=== PATIENT | male | born 1955 | race Caucasian/White ===

== ENCOUNTER 2016-10-11 18:53 | Emergency (ER) | payer OTHER ==
[2016-10-11] MEDS ORDERED: ASPIRIN 81 MG TABLET, CHEWABLE PO ONE (19:29)
--- NOTE | 2016-10-11 19:33 | ER Document Report ---
ED Medical Screen (RME) - General Stated Complaint: BLOOD PRESSURE ISSUE Notes: Patient states he has been feeling dizzy and having nausea since last . Had an EKG done in the ambulance on , was seen in the [facility] ER. States had a negative CT scan of head for headache. Still has OSORIO today. No blood work done. Denies fever, cough or congestion. States blood pressure has been elevated since . I have greeted and performed a rapid initial assessment of this patient. A comprehensive ED assessment and evaluation of the patient, analysis of test results and completion of the medical decision making process will be conducted by additional ED providers. TRAVEL OUTSIDE OF THE [place] IN LAST 30 DAYS: No - Related Data Allergies/Adverse Reactions: No Known Allergies Allergy (Unverified 06/25/14 07:38) Past Medical History - Past Medical History Cardiac Medical History: Reports: Hx Hypertension Endocrine Medical History: Reports: Hx Diabetes Mellitus Type 2 - Immunizations Hx Diphtheria, Pertussis, Tetanus Vaccination: - unk Physical Exam - Vital signs Vitals: Temp Pulse Resp BP Pulse Ox 97.9 F 93 12 184/102 H 98 10/11/16 19:19 10/11/16 19:19 10/11/16 19:19 10/11/16 19:19 10/11/16 19:19 - Respiratory Respiratory status: No respiratory distress Breath sounds: Normal - Cardiovascular Rhythm: Regular Heart sounds: Normal auscultation Course - Vital Signs Vital signs: Temp Pulse Resp BP Pulse Ox 97.9 F 93 12 184/102 H 98 10/11/16 19:19 10/11/16 19:19 10/11/16 19:19 10/11/16 19:19 10/11/16 19:19
[2016-10-11] MEDS ORDERED: CLONIDINE HCL 0.1 MG TABLET PO ONE (20:36)
[2016-10-11 20:42] LABS: ABSOLUTE EOSINOPHILS # (AUTO) 0.3 10^3/uL (0.0-0.6); ABSOLUTE LYMPHOCYTES (AUTO) 2.6 10^3/uL (0.5-4.7); ABSOLUTE MONOCYTES (AUTO) 0.9 10^3/uL (0.1-1.4); ABSOLUTE NEUT (AUTO) 6.1 10^3/uL (1.7-8.2); BASOPHILS % (AUTO) 0.3 % (0-2); HEMATOCRIT 47.2 % (37.9-51.0); HEMOGLOBIN 16.2 g/dL (13.5-17.0); HGB HCT DIFFERENCE 1.4; LYMPHOCYTES % (AUTO) 26.3 % (13-45); MEAN CORPUSCULAR HEMOGLOBIN 31.3 pg (27.0-33.4); MEAN CORPUSCULAR HGB CONC 34.3 g/dL (32.0-36.0); MEAN CORPUSCULAR VOLUME 91 fl (80-97); MONOCYTES % (AUTO) 8.6 % (3-13); RED BLOOD COUNT 5.18 10^6/uL (4.35-5.55); SEGMENTED NEUTROPHILS % (AUTO) 61.8 % (42-78); WHITE BLOOD COUNT 9.9 10^3/uL (4.0-10.5)
--- NOTE | 2016-10-11 20:42 | ER Document Report ---
ED General - General Chief Complaint: High Blood Pressure Stated Complaint: BLOOD PRESSURE ISSUE Information source: Patient Notes: 61-year-old male who presents today with the onset of a headache. Patient states that he went to his primary care physician to have an injection of his foot for plantar fasciitis. He received the injection. He states at the office his systolic blood pressure was 190. Patient was not started on new medications but discharged home. He states he felt a little lightheaded and dizzy that they with a frontal headache and went to the fire department who took him to the [facility] emergency department. Supposedly they gave the patient blood pressure medications with "dropped his blood pressure in the ER". The discharge the patient home after observation in the emergency department with no change in medications. Patient states he has continued to have some intermittent frontal headaches without blurry vision, neck pain, nausea, vomiting, chest pain, weakness or numbness. He believes he may have had some bilateral hand swelling yesterday which has resolved. No lower extremity pain or swelling. Patient has been taking valsartan 60 mg daily for greater than 5 years. He states his headaches have been intermittent with no aggravating or relieving factors. The headache came on slowly on onset. TRAVEL OUTSIDE OF THE [place] IN LAST 30 DAYS: No - HPI Onset: Other - See above Onset/Duration: Gradual Quality of pain: Achy Severity: Moderate Pain Level: 2 Associated symptoms: Other - See above Exacerbated by: Denies Relieved by: Denies Similar symptoms previously: Yes Recently seen / treated by doctor: Yes - Related Data Allergies/Adverse Reactions: No Known Allergies Allergy (Verified 10/11/16 19:32) Past Medical History - Social History Smoking Status: Current Every Day Smoker Chew tobacco use (# tins/day): No Frequency of alcohol use: None Drug Abuse: None Family History: Reviewed & Not Pertinent Patient has suicidal ideation: No Patient has homicidal ideation: No - Past Medical History Cardiac Medical History: Reports: Hx Hypertension Endocrine Medical History: Reports: Hx Diabetes Mellitus Type 2 Renal/ Medical History: Denies: Hx Peritoneal Dialysis - Immunizations Hx Diphtheria, Pertussis, Tetanus Vaccination: - unk Review of Systems - Review of Systems Constitutional: denies: Fever EENT: denies: Eye discharge, Blurred vision, Nose discharge Cardiovascular: denies: Chest pain, Palpitations Respiratory: denies: Cough, Short of breath Gastrointestinal: denies: Vomiting Genitourinary: denies: Dysuria Musculoskeletal: denies: Leg swelling Skin: Other - no hives. denies: Rash Neurological/Psychological: Other - no slurred speech -: Yes All other systems reviewed and negative Physical Exam - Vital signs Vitals: Temp Pulse Resp BP Pulse Ox 97.9 F 93 12 184/102 H 98 10/11/16 19:19 10/11/16 19:19 10/11/16 19:19 10/11/16 19:19 10/11/16 19:19 Notes: Reviewed vital signs and nursing note as charted by RN. CONSTITUTIONAL: Alert and oriented and responds appropriately to questions. Well -appearing; well-nourished HEAD: Normocephalic; atraumatic EYES: PERRL; full extraocular range of motion. ENT: Normal nose; no rhinorrhea; moist mucous membranes; pharynx without lesions noted NECK: Supple without meningismus; non-tender; no carotid bruits; no cervical lymphadenopathy, no masses CARD: Regular rate and rhythm; no murmurs, no clicks, no rubs, no gallops; symmetric distal pulses RESP: Normal chest excursion without splinting or tachypnea; breath sounds clear and equal bilaterally; no wheezes, no rhonchi, no rales ABD/GI: Normal bowel sounds; non-distended; soft, non-tender, no rebound, no guarding; no palpable organomegaly or masses BACK: The back appears normal and is non-tender to palpation, there is no CVA tenderness EXT: Normal ROM in all joints; non-tender to palpation; no cyanosis, no effusions, no edema SKIN: Normal color for age and race; warm; dry; good turgor; capillary refill < 2 seconds; no acute lesions noted NEURO: CN II through XII are intact. Patient has 5 out of 5 bilateral upper and lower extremity strength with sensation intact to light touch. PSYCH: The patient's mood and manner are appropriate. Grooming and personal hygiene are appropriate. Course - Re-evaluation Re-evalutation: 10/11/16 20:41 Given the history and physical examination I will perform a CT scan of the head as well as an EKG and basic laboratory values. I will provide antihypertensive medications with the patient on the monitor given his recent visit to the [facility] emergency department as detailed above. EKG shows a heart of 77, normal sinus rhythm, normal axis, no obvious ST elevation or depression. 10/11/16 21:50 Labs, troponin, CT scan of the head, an x-ray of the chest as recorded showing no acute abnormalities. Patient's headache is improved. EKG unremarkable. 10/11/16 22:41 Blood pressure has improved. Patient states he feels "absolutely great" and denies any headache, weakness or numbness. I will start the patient on clonidine 0.1 twice a day. Patient states that he has an appointment with his primary care physician tomorrow morning. I have told him not to fill the prescription until he sees his primary care physician tomorrow morning. Strict return precautions have been explained. - Vital Signs Vital signs: Temp Pulse Resp BP Pulse Ox 97.9 F 94 10 L 152/92 H 98 10/11/16 19:28 10/11/16 19:28 10/11/16 20:37 10/11/16 20:37 10/11/16 20:37 - Laboratory Result Diagrams: 10/11/16 20:25 10/11/16 20:25 Laboratory results interpreted by me: 10/11/16 20:25 Glucose 161 H Discharge - Discharge Clinical Impression: Elevated blood pressure reading Headache Qualifiers: Headache type: unspecified Headache chronicity pattern: acute headache Intractability: not intractable Qualified Code(s): R51 - Headache Condition: Good Disposition: HOME, SELF-CARE Additional Instructions: Come back immediately with any return of pain, weakness or numbness, vomiting, change in location or quality of pain, or any other acute problems. Please follow-up with your doctor tomorrow morning as we have discussed. Prescriptions: Clonidine HCl 0.1 mg PO BID #60 tablet
[2016-10-11 20:49] LABS: PROTHROMBIN TIME 12.2 SEC (11.4-15.4)
[2016-10-11 20:54] LABS: ALANINE AMINOTRANSFERASE 34 U/L (21-72); ALBUMIN 4.6 g/dL (3.5-5.0); ALKALINE PHOSPHATASE 89 U/L (38-126); ANION GAP 13 (5-19); ASPARTATE AMINO TRANSFERASE 18 U/L (17-59); BILIRUBIN,TOTAL 0.5 mg/dL (0.2-1.3); BLOOD UREA NITROGEN 20 mg/dL (7-20); CALCIUM 9.9 mg/dL (8.4-10.2); CARBON DIOXIDE 26 mmol/L (22-30); CHLORIDE 101 mmol/L (98-107); CREATINE KINASE 77 U/L (55-170); CREATININE RESULT 0.82 mg/dL (0.52-1.25); GLUCOSE 161 mg/dL (75-110); POTASSIUM 4.2 mmol/L (3.6-5.0); SODIUM 139.5 mmol/L (137-145); TOTAL PROTEIN 7.5 g/dL (6.3-8.2)
[2016-10-11 21:04] LABS: CREATINE KINASE MB 0.61 ng/mL (<4.55)
[2016-10-11 21:07] LABS: TROPONIN I < 0.012 ng/mL
[2016-10-11 22:55] VITALS: BP 128/84
--- NOTE | 2016-10-12 08:38 | EKG REPORT ---
SEVERITY:- NORMAL ECG - SINUS RHYTHM : Confirmed by: Kristofer Flores 12-Oct-2016 08:37:51
== END 2016-10-11 22:30 | disposition home or self-care (01) ==
LOC: ER 18:53
DX: R51 Headache (principal); I10 Essential (primary) hypertension; M79.89 Other specified soft tissue disorders; F17.210 Nicotine dependence, cigarettes, uncomplicated
CPT/HCPCS: 36415; 70450; 71010; 80053; 82550; 82553; 84484; 85025; 85610; 93005; 93010; 99284

== ENCOUNTER 2016-10-20 06:31 | Observation (INO) | payer OTHER ==
[2016-10-20] MEDS ORDERED: DILTIAZEM HCL/D5W 125 MG/125 ML RTUINJ IV ONE (06:47)
[2016-10-20] MEDS ORDERED: DILTIAZEM HCL INJ 25 MG/5 ML VIAL ONE (06:48)
[2016-10-20] MEDS ORDERED: DIGOXIN INJ 0.5 MG/2 ML AMPULE IV ONE ×2 (06:49→07:07)
--- NOTE | 2016-10-20 06:54 | ER Document Report ---
ED General - General Chief Complaint: Chest Pain Stated Complaint: CHEST PAIN,DIFFICULTY BREATHING Time seen by provider: 06:50 Mode of Arrival: Medic Information source: Patient Notes: 61-year-old male woke up 4:30 this morning with sensation midsternal chest pressure and rapid heartbeat. He reports no prior history of symptoms like this. He reports he had some shortness of breath initially feels much better now after treatment in the months. He reports no associated diaphoresis nausea or vomiting. Reports chest discomfort is nonradiating and he has resolution of that now. He reports no recent travel history. He reports being in normal state of health otherwise recently with reports that he says several visits to [facility] for blood pressures as high as 200 systolic[address] In route EMS provided aspirin 324 mg, adenosine 6 mg tomograms 12 mg with an increase in patient's heart rate from 09/08/1979 followed by 20 mg of IV Cardizem and then 10 mg of IV Cardizem with heart rate coming down to 144. Blood pressure 124/83 Physical Exam: General: Alert, appears well. HEENT: Normocephalic. Atraumatic. PERRLA. Extraocular movements intact. Oropharynx clear. Neck: Supple. Non-tender. Respiratory: No respiratory distress. Clear and equal breath sounds bilaterally. Cardiovascular: Tachycardic regular no murmur Abdominal: Normal Inspection. Soft, non-tender. No distension. Normal Bowel Sounds. Back: Non-tender. No deformity or step off. Extremities: Moves all four extremities. Upper extremities: Normal inspection. Non-tender. Normal color. Normal ROM. Normal temperature. Lower extremities: Normal inspection. Non-tender. No edema. Normal color. Normal ROM. Normal temperature. Neurological: Speech clear mentation normal automatic mounter strength 5 out of 5 equal both upper extremities motor function 5 out of 5 equal both lower extremities Psychological: Normal affect. Normal Mood. Skin: Warm. Dry. Normal color. TRAVEL OUTSIDE OF THE [place] IN LAST 30 DAYS: No - Related Data Allergies/Adverse Reactions: No Known Allergies Allergy (Verified 10/11/16 19:32) Past Medical History - Social History Smoking Status: Current Every Day Smoker Family History: CAD - Past Medical History Cardiac Medical History: Reports: Hx Hypertension Endocrine Medical History: Reports: Hx Diabetes Mellitus Type 2 Renal/ Medical History: Denies: Hx Peritoneal Dialysis Past Surgical History: Reports: Hx Orthopedic Surgery - Shoulder - Immunizations Hx Diphtheria, Pertussis, Tetanus Vaccination: - unk Review of Systems - Review of Systems Constitutional: denies: Chills, Fever EENT: denies: Ear pain, Throat pain Cardiovascular: See HPI Respiratory: denies: Cough Gastrointestinal: denies: Abdominal pain, Diarrhea, Blood in vomit, Black stools , Rectal bleeding Genitourinary: denies: Burning, Dysuria Musculoskeletal: denies: Back pain, Muscle pain, Leg swelling Hematologic/Lymphatic: denies: Swollen glands Neurological/Psychological: denies: Weakness, Numbness Physical Exam - Vital signs Vitals: Resp 13 10/20/16 06:34 Course - Re-evaluation Re-evalutation: 10/20/16 09:24 Patient remained tachycardic in the 150 range in spite of IV Cardizem and IV digoxin 0.125 mg IV 2 but did slow down and response but to metoprolol 2.5 g IV. He is asymptomatic now have consulted Dr. Ulloa of hospitalist service for admission. Critical care time excluding billable procedures 30 minutes 10/20/16 09:24 10/20/16 09:24 - Vital Signs Vital signs: Temp Pulse Resp BP Pulse Ox 12 105/85 100 10/20/16 08:01 10/20/16 08:01 10/20/16 08:01 - Laboratory Result Diagrams: 10/20/16 07:06 10/20/16 07:06 Laboratory results interpreted by me: 10/20/16 07:06 Sodium 136.1 L Glucose 198 H - Diagnostic Test Radiology reviewed: Image reviewed, Reports reviewed - EKG Interpretation by Me Additional EKG results interpreted by me: 10/20/16 06:53 EKG reviewed by myself shows atrial flutter ventricular rate of [address] changes 10/20/16 09:23 Repeat EKG reviewed by myself shows atrial flutter with ventricular rate of approximately [address] changes Discharge - Discharge Clinical Impression: Atrial flutter Qualifiers: Atrial flutter type: typical Qualified Code(s): I48.3 - Typical atrial flutter Condition: Fair Disposition: ADMITTED INPATIENT Admitting Provider: Hospitalist Unit Admitted: [facility]
[2016-10-20 07:19] LABS: ABSOLUTE EOSINOPHILS # (AUTO) 0.2 10^3/uL (0.0-0.6); ABSOLUTE LYMPHOCYTES (AUTO) 1.8 10^3/uL (0.5-4.7); ABSOLUTE MONOCYTES (AUTO) 0.7 10^3/uL (0.1-1.4); ABSOLUTE NEUT (AUTO) 5.7 10^3/uL (1.7-8.2); BASOPHILS % (AUTO) 0.2 % (0-2); EOSINOPHILS % (AUTO) 2.8 % (0-6); HEMATOCRIT 46.5 % (37.9-51.0); HEMOGLOBIN 16.1 g/dL (13.5-17.0); HGB HCT DIFFERENCE 1.8; MEAN CORPUSCULAR HGB CONC 34.6 g/dL (32.0-36.0); MEAN CORPUSCULAR VOLUME 90 fl (80-97); MONOCYTES % (AUTO) 8.5 % (3-13); RED BLOOD COUNT 5.18 10^6/uL (4.35-5.55); RED CELL DISTRIBUTION WIDTH 13.6 % (11.5-14.0); SEGMENTED NEUTROPHILS % (AUTO) 67.5 % (42-78); WHITE BLOOD COUNT 8.5 10^3/uL (4.0-10.5)
[2016-10-20 07:36] LABS: ALANINE AMINOTRANSFERASE 34 U/L (21-72); ALBUMIN 4.3 g/dL (3.5-5.0); ALKALINE PHOSPHATASE 104 U/L (38-126); ANION GAP 13 (5-19); ASPARTATE AMINO TRANSFERASE 20 U/L (17-59); BILIRUBIN,TOTAL 0.9 mg/dL (0.2-1.3); BLOOD UREA NITROGEN 19 mg/dL (7-20); CALCIUM 9.6 mg/dL (8.4-10.2); CARBON DIOXIDE 23 mmol/L (22-30); CHLORIDE 100 mmol/L (98-107); CREATINE KINASE 69 U/L (55-170); CREATININE RESULT 0.84 mg/dL (0.52-1.25); GLUCOSE 198 mg/dL (75-110); MAGNESIUM 1.6 mg/dL (1.6-2.3); POTASSIUM 4.1 mmol/L (3.6-5.0); SODIUM 136.1 mmol/L (137-145); TOTAL PROTEIN 6.8 g/dL (6.3-8.2)
[2016-10-20] MEDS ORDERED: METOPROLOL TARTRATE PF/INJ 5 MG/5 ML SDV IV ONE ×2 (07:43→09:23)
[2016-10-20 07:48] LABS: CREATINE KINASE MB 0.67 ng/mL (<4.55)
[2016-10-20 07:50] LABS: TROPONIN I < 0.012 ng/mL
[2016-10-20] MEDS: MAGNESIUM SULFATE/D5W 100 ML IV SCH ×2 (08:35→09:26)
[2016-10-20 09:48] LABS: APPEARANCE,URINE CLEAR; BILIRUBIN,URINE NEGATIVE (NEGATIVE); GLUCOSE, URINE NEGATIVE (NEGATIVE); KETONES,URINE TRACE mg/dL (NEGATIVE); LEUKOCYTE ESTERASE,URINE NEGATIVE (NEGATIVE); NITRITE,URINE NEGATIVE (NEGATIVE); PROTEIN,URINE NEGATIVE (NEGATIVE); UROBILINOGEN,URINE NEGATIVE mg/dL (<2.0)
[2016-10-20] MEDS ORDERED: MAG HYDROX/AL HYDROX/SIMETH SUSP 30 ML UDCUP PO PRN (10:01)
[2016-10-20] MEDS ORDERED: ONDANSETRON HCL INJ/PF 4 MG/2 ML SDV IV PRN (10:01)
[2016-10-20] MEDS ORDERED: DIAZEPAM 5 MG TABLET PO PRN (10:01)
[2016-10-20] MEDS ORDERED: NITROGLYCERIN 0.4 MG/TAB 25 TAB/BOTTLE SL PRN (10:01)
[2016-10-20 10:02] LABS: URINE BARBITURATES SCREEN NEGATIVE; URINE METHADONE SCREEN NEGATIVE; URINE PHENCYCLIDINE SCREEN NEGATIVE
[2016-10-20] MEDS ORDERED: MORPHINE SULFATE 10 MG/ML INJ IV PRN (10:07)
[2016-10-20 10:09] LABS: URINE OPIATES LOW NEGATIVE
[2016-10-20] MEDS ORDERED: DEXTROSE 40% GEL 15 GM TUBE PO PRN ×2 (10:09)
[2016-10-20] MEDS ORDERED: DEXTROSE 50%-WATER 25 GM/50 ML DISP.SYRIN IV PRN ×2 (10:09)
[2016-10-20] MEDS ORDERED: GLUCAGON,HUMAN RECOMB 1 MG INJ IM PRN (10:09)
[2016-10-20] MEDS ORDERED: INSULIN LISPRO 100 UNIT/ML 3 ML VIAL SUBCUT PRN (10:09)
[2016-10-20] MEDS ORDERED: NORMAL SALINE 1000 ML 1,000 ML IV ONE (10:30)
[2016-10-20] MEDS: NORMAL SALINE 1000 ML 1,000 ML IV PRN ×2 (10:31→22:52)
[2016-10-20] MEDS ORDERED: ENOXAPARIN SODIUM INJ 80 MG/0.8 ML DISP.SYRIN SUBCUT ONE (10:45)
[2016-10-20] MEDS ORDERED: NICOTINE 14 MG/24 HR PATCH.TD24 TD ONE (10:45)
[2016-10-20] MEDS ORDERED: ATORVASTATIN CALCIUM 80 MG TABLET PO ONE (10:45)
--- NOTE | 2016-10-20 10:48 | PDOC H&P ---
History of Present Illness Admission Date/PCP: 10/20/16 09:40 History of Present Illness: JAZMIN AVERY is a 61 year old male with past medical history significant for hypertension, hyperlipidemia, diabetes mellitus type II, tobacco abuse, and family history of heart disease who presents to the emergency department with complaints of chest pain. Patient reports that he was asleep and at 4:30am he was aroused from sleep by chest pain and palpitations. He reports that he had chest pressure that was deep in radiated to his jaw and left arm. Patient also reports associated shortness of breath, nausea without vomiting. Patient denies diaphoresis. He does report a headache. reports some slight confusion. Patient was recently started on Augmentin for what was reported to be a sinus infection. Patient reports he took his blood pressure at this time and is recorded on there home log as 142/97. Patient is found to be in a flutter in the emergency department and subsequently had development of a flutter with rapid ventricular response. Patient received 25 mg grams of IV Cardizem, and digoxin 0.25 mg, and metoprolol 2.5 mg IV 1. Since medical records receptionist of metoprolol, patient has become bradycardic and his Cardizem drip was shut off. Patient had a pause on as for approximately 15 seconds which was symptomatic with lightheadedness. Patient reports that he has been in good health prior to this other than having some blood pressure problems. He is referred to the hospitalist service \ for a flutter and chest pain. Please note the patient's medications are currently undergoing reconciliation at this time. The current list is automatically generated by [employer] and does not necessarily reflect an accurate list. Bedside review of patient's medications reveal that they include valsartan, hydrocodone thiazide, fish oil, Nexium, Lipitor, metformin. Past Medical History Cardiac Medical History: Reports: Hyperlipidema, Hypertension Endocrine Medical History: Reports: Diabetes Mellitus Type 2 Past Surgical History Past Surgical History: Reports: Orthopedic Surgery - Shoulder, knee, elbow Social History Smoking Status: Current Every Day Smoker Cigarettes Packs Per Day: 0.5 Frequency of Alcohol Use: None Hx Recreational Drug Use: No Hx Prescription Drug Abuse: No - Advance Directive Resuscitation Status: Full Code Surrogate healthcare decision maker:: , Susie Family History Family History: CAD, DM, Other - Asbestosis Parental Family History Reviewed: Yes Children Family History Reviewed: Yes Sibling(s) Family History Reviewed.: Yes Medication/Allergy Allergies/Adverse Reactions: No Known Allergies Allergy (Verified 10/11/16 19:32) Review of Systems Constitutional: PRESENT: headache(s). ABSENT: chills, fever(s), weight gain, weight loss Eyes: ABSENT: visual disturbances Ears: ABSENT: hearing changes Nose, Mouth, and Throat: PRESENT: headache(s) Cardiovascular: PRESENT: as per HPI, chest pain. ABSENT: dyspnea on exertion, edema, orthropnea, palpitations Respiratory: PRESENT: as per HPI. ABSENT: cough, dyspnea, hemoptysis, sputum Gastrointestinal: ABSENT: abdominal pain, constipation, diarrhea, hematemesis, hematochezia, melena, nausea, vomiting Genitourinary: PRESENT: dysuria. ABSENT: hematuria Musculoskeletal: ABSENT: joint swelling Integumentary: ABSENT: rash, wounds Neurological: ABSENT: abnormal gait, abnormal speech, confusion, dizziness, focal weakness, syncope Psychiatric: ABSENT: anxiety, depression, homidical ideation, suicidal ideation Endocrine: ABSENT: cold intolerance, heat intolerance, polydipsia, polyphagia, polyuria Hematologic/Lymphatic: ABSENT: easy bleeding, easy bruising Allergic/Immunologic: PRESENT: seasonal rhinorrhea Physical Exam Vital Signs: Temp Pulse Resp BP Pulse Ox 12 105/85 100 10/20/16 08:01 10/20/16 08:01 10/20/16 08:01 General appearance: PRESENT: mild distress, well-developed, well-nourished Head exam: PRESENT: atraumatic, normocephalic Eye exam: PRESENT: conjunctiva pink, EOMI, PERRLA. ABSENT: scleral icterus Ear exam: PRESENT: normal external ear exam. ABSENT: TM's normal bilaterally - Left TM injected with serous effusion Mouth exam: PRESENT: tongue midline. ABSENT: moist - slightly dry Neck exam: PRESENT: full ROM, thyromegaly - Mild right lobe. ABSENT: JVD, lymphadenopathy, tracheal deviation Respiratory exam: PRESENT: clear to auscultation kassandra, prolonged expiratory phas , symmetrical, unlabored. ABSENT: crackles, rales, rhonchi, stridor, tachypnea , wheezes Cardiovascular exam: PRESENT: bradycardia, RRR, +S1, +S2. ABSENT: diastolic murmur, gallop, rubs, systolic murmur Pulses: PRESENT: +1 pedal pulses bilateral Vascular exam: PRESENT: normal capillary refill GI/Abdominal exam: PRESENT: normal bowel sounds, soft. ABSENT: distended, firm , guarding, hernia, mass, Clark's sign, organolmegaly, rebound, rigid, tenderness Rectal exam: PRESENT: deferred Extremities exam: PRESENT: full ROM, pedal edema - Pretibial edema. ABSENT: calf tenderness, clubbing Neurological exam: PRESENT: alert, awake, oriented to person, oriented to place , oriented to time, oriented to situation, CN II-XII grossly intact. ABSENT: motor sensory deficit Psychiatric exam: PRESENT: appropriate affect, normal mood. ABSENT: homicidal ideation, suicidal ideation Skin exam: PRESENT: dry, intact, warm. ABSENT: cyanosis, rash Results Impressions: Chest X-Ray 10/20/16 06:33 IMPRESSION: NO ACUTE RADIOGRAPHIC FINDING IN THE CHEST. Assessment & Plan - Diagnosis (1) Chest pain Qualifiers: Chest pain type: precordial pain Qualified Code(s): R07.2 - Precordial pain Is this a current diagnosis for this admission?: YesPlan: Patient has very classic anginal sounding chest pain. Patient is extremely high risk for cardiac event with hypertension, hyperlipidemia, diabetes mellitus , tobacco abuse, family history, male sex, and age greater than 50. Patient currently on full dose Lovenox, atorvastatin, oxygen, metoprolol, valsartan, morphine, and aspirin. Patient is currently chest pain-free and did not require any nitrates. Nitrates are available when necessary for chest pain. Place patient on IMCU and rule out for ACS. Serial cardiac enzymes with EKGs, fasting lipid profile. If this is negative, will obtain stress test tomorrow. (2) Atrial flutter with rapid ventricular response Is this a current diagnosis for this admission?: YesPlan: Patient has currently converted into sinus rhythm, sinus bradycardia. Patient did have a significant pause that time. Have consulted Dr. Flores cardiology and ordered an echocardiogram. Will place patient on metoprolol as he seems to respond well to this. Patient will likely require anticoagulation. Likely secondary to his underlying smoking history. However concerns for ACS to exist. Will also check TSH. (3) Diabetes Qualifiers: Diabetes mellitus type: type 2 Diabetes mellitus complication status: without complication Diabetes mellitus chcf insulin use: without bed bug exterminator use Qualified Code(s): E11.9 - Type 2 diabetes mellitus without complications Is this a current diagnosis for this admission?: YesPlan: Check hemoglobin A1c. Hold metformin as I have a strong suspicion that this patient will require cardiac catheterization. Will place patient on slice scale insulin. (4) Hypertension Qualifiers: Hypertension type: essential hypertension Qualified Code(s): I10 - Essential (primary) hypertension Is this a current diagnosis for this admission?: YesPlan: Will resume patient's valsartan as blood pressure permits. Initiate patient on metoprolol per ACS protocol (5) Hyperlipidemia Qualifiers: Hyperlipidemia type: unspecified Qualified Code(s): E78.5 - Hyperlipidemia, unspecified Is this a current diagnosis for this admission?: YesPlan: We'll check FLP. Will give patient 80 mg of atorvastatin now. (6) Tobacco abuse Is this a current diagnosis for this admission?: YesPlan: Nicotine patch when necessary patient has been counseled for more than 3 minutes regarding smoking cessation. He is amenable to this. (7) GERD (gastroesophageal reflux disease) Qualifiers: Esophagitis presence: esophagitis presence not specified Qualified Code(s): K21.9 - Gastro-esophageal reflux disease without esophagitis Is this a current diagnosis for this admission?: YesPlan: Continue PPI (8) Allergic sinusitis Is this a current diagnosis for this admission?: YesPlan: Place patient on Claritin and Flonase - Time Time Spent: Greater than 70 Minutes Smoking Cessation Education: 3 to 10 minutes Medications reviewed and adjusted accordingly: Yes Anticipated discharge: Home Within: within 48 hours - Inpatient Certification Based on my medical assessment, after consideration of the patient's comorbidities, presenting symptoms, or acuity I expect that the services needed warrant INPATIENT care.: No I certify that my determination is in accordance with my understanding of Medicare's requirements for reasonable and necessary INPATIENT services [42 CFR 412.3e].: No Medical Necessity: Need For Continuous Telemetry Monitoring Post Hospital Care: D/C Inorganic Chemistry Professor Documentation
[2016-10-20] MEDS ORDERED: LORATADINE 10 MG TABLET PO ONE (11:00)
[2016-10-20] MEDS ORDERED: FLUTICASONE NASAL SPRAY 50 MCG/SPRY 120 SPRAY/16 GM NASL ONE (11:30)
[2016-10-20 11:55] LABS: CREATINE KINASE MB 0.74 ng/mL (<4.55); TROPONIN I 0.014 ng/mL
[2016-10-20] MEDS ORDERED: LANSOPRAZOLE 30 MG TAB.RAP.DR PO ONE (13:00)
[2016-10-20] MEDS ORDERED: DRONEDARONE HYDROCHLORIDE 400 MG TABLET PO ONE (13:30)
[2016-10-20] MEDS ORDERED: AMINOPHYLLINE INJ/PF 250 MG/10 ML SDV IV ONE (15:22)
[2016-10-20] MEDS ORDERED: REGADENOSON INJ 0.4 MG/5 ML DISP.SYRIN IV ONE (15:22)
[2016-10-20] MEDS ORDERED: LANSOPRAZOLE 15 MG TAB.RAP.DR PO SCH (17:00)
--- NOTE | 2016-10-20 17:24 | XCELERA REPORT ---
[address] [address] Transthoracic Echocardiogram Report Name: JAZMIN AVERY Age: 61 yrs Gender: Male : 1955 Patient Status: Inpatient Patient Location: \S\[facility]\S\A Study Date: 10/20/2016 02:07 PM Height: 65 in Weight: 185 lb BSA: 1.9 m2 Procedure: A complete two-dimensional transthoracic echocardiogram was performed (2D, M-mode, spectral and color flow Doppler). The study was technically adequate with some images being suboptimal in quality. Reason For Study: LV Function, size, wall thickness,Valve Function Ordering Physician: ROSE PÉREZ Performed By: Huyen Lozada Interpretation Summary The left ventricular ejection fraction is normal. There is borderline concentric left ventricular hypertrophy. Doppler measurements suggest impaired left ventricular relaxation, which is associated with grade I/IV or mild diastolic dysfunction The left ventricle is grossly normal size. Wall motion cannot be accurately commented on, but no definite regional wall motion abnormalities noted. The right ventricular systolic function is normal. The left atrial size is normal. The right atrium is normal in size There is a trace amount of mitral regurgitation There is no mitral valve stenosis. No aortic regurgitation is present. There is no aortic valve stenosis There is a trace amount of tricuspid regurgitation There is mild pulmonary hypertension by echo Right ventricular systolic pressure is estimated to be elevated at 30- 40mmHg. There is no pericardial effusion. MMode/2D Measurements \T\ Calculations RVDd: 2.5 cm LVIDd: 3.9 cm FS: 35.8 % Ao root diam: 2.7 cm IVSd: 1.0 cm LVIDs: 2.5 cm EDV(Teich): 64.0 ml LVPWd: 0.99 cm ESV(Teich): 21.8 ml Ao root area: 5.8 cm2 EF(Teich): 66.0 % LA dimension: 3.0 cm Doppler Measurements \T\ Calculations MV E max timoteo: MV P1/2t max timoteo: Ao V2 max: LV V1 max P.5 cm/sec 78.0 cm/sec 148.8 cm/sec 6.8 mmHg MV A max timoteo: MV P1/2t: 63.7 msec Ao max PG: LV V1 max: 47.4 cm/sec 8.9 mmHg 130.3 cm/sec MV E/A: 1.7 MVA(P1/2t): 3.5 cm2 MV dec slope: 358.5 cm/sec2 MV dec time: 0.22 sec PA V2 max: TR max timoteo: 89.8 cm/sec 272.8 cm/sec PA max PG: TR max P.8 mmHg 3.2 mmHg Left Ventricle The left ventricle is grossly normal size. There is borderline concentric left ventricular hypertrophy. The left ventricular ejection fraction is normal. Doppler measurements suggest impaired left ventricular relaxation, which is associated with grade I/IV or mild diastolic dysfunction. Wall motion cannot be accurately commented on, but no definite regional wall motion abnormalities noted. Right Ventricle The right ventricle is grossly normal size. There is normal right ventricular wall thickness. The right ventricular systolic function is normal. Atria The right atrium is normal in size. The left atrial size is normal. Interarterial septum not well visualized and not well dopplered. Cannot comment on ASD/PFO presence. Mitral Valve The mitral valve is grossly normal. There is no mitral valve stenosis. There is a trace amount of mitral regurgitation. Aortic Valve The aortic valve is grossly normal. There is no aortic valve stenosis. No aortic regurgitation is present. Tricuspid Valve The tricuspid valve is not well visualized, but is grossly normal. There is no tricuspid stenosis. There is a trace amount of tricuspid regurgitation. There is mild pulmonary hypertension by echo. Right ventricular systolic pressure is estimated to be elevated at 30-40mmHg. Pulmonic Valve The pulmonic valve is not well visualized. Great Vessels The aortic root is not well visualized. The inferior vena cava appeared normal and decreased > 50% with respiration (RAP 5-10 mmHg). Effusions There is no pericardial effusion. : ROSE PÉREZ > Kristofer Flores
--- NOTE | 2016-10-20 17:26 | EKG REPORT ---
SEVERITY:- ABNORMAL ECG - A-FLUTTER W/ PREDOM 4:1 AV BLOCK, A-RATE 294 VENTRICULAR PREMATURE COMPLEX LAD, CONSIDER LEFT ANTERIOR FASCICULAR BLOCK PROLONGED QT INTERVAL : Confirmed by: Janet Barba MD 20-Oct-2016 17:26:40
[2016-10-20] MEDS ORDERED: INFLUENZA ADLT QUAD (36MOS+) 2016-17 VAC 0.5 ML SYR IM PRN (17:27)
--- NOTE | 2016-10-20 17:27 | EKG REPORT ---
SEVERITY:- NORMAL ECG - SINUS RHYTHM : Confirmed by: Janet Barba MD 20-Oct-2016 17:26:27
--- NOTE | 2016-10-20 17:28 | EKG REPORT ---
SEVERITY:- ABNORMAL ECG - SINUS TACHYCARDIA BORDERLINE LEFT AXIS DEVIATION ST DEPRESSION, CONSIDER ISCHEMIA, DIFFUSE LDS BORDERLINE PROLONGED QT INTERVAL : Confirmed by: Janet Barba MD 20-Oct-2016 17:26:46
--- NOTE | 2016-10-20 17:44 | PDOC CONSULTATION ---
Consultation Consult Date: 10/20/16 Attending physician:: ROSE PÉREZ Consult reason:: Chest pain and atrial flutter fibrillation History of Present Illness Admission Date/PCP: 10/20/16 10:01 Patient complains of: Chest pain and palpitations History of Present Illness: JAZMIN AVERY is a 61 year old male with past medical history significant for hypertension, hyperlipidemia, diabetes mellitus type II, tobacco abuse, and family history of heart disease who presents to the emergency department with complaints of chest pain. Patient reports that he was asleep and at 4:30am he was aroused from sleep by chest pain and palpitations. He reports that he had chest pressure that was deep in radiated to his jaw and left arm. Patient also reports associated shortness of breath, nausea without vomiting. Patient denies diaphoresis. He does report a headache. reports some slight confusion. Patient was recently started on Augmentin for what was reported to be a sinus infection. Patient reports he took his blood pressure at this time and is recorded on there home log as 142/97. Patient is found to be in a flutter in the emergency department and subsequently had development of a flutter with rapid ventricular response. Patient received 25 mg grams of IV Cardizem, and digoxin 0.25 mg, and metoprolol 2.5 mg IV 1. Since guest services of metoprolol, patient has become bradycardic and his Cardizem drip was shut off. Patient reports that he has been in good health prior to this other than having some blood pressure problems. He is referred to the hospitalist service \ for a flutter and chest pain. Please note the patient's medications are currently undergoing reconciliation at this time. The current list is automatically generated by [employer] and does not necessarily reflect an accurate list. Bedside review of patient's medications reveal that they include valsartan, hydrocodone thiazide, fish oil, Nexium, Lipitor, metformin. This history was reviewed, confirmed and supplemented. Patient does give history of loud habitual snoring. Patient has difficulty staying asleep. Past Medical History Cardiac Medical History: Reports: Hyperlipidema, Hypertension Endocrine Medical History: Reports: Diabetes Mellitus Type 2 Psychiatric Medical History: Denies: Depression Past Surgical History Past Surgical History: Reports: Orthopedic Surgery - Shoulder, knee, elbow Social History Information Source: Patient Smoking Status: Current Every Day Smoker Cigarettes Packs Per Day: 0.5 Number of Years Smokin Frequency of Alcohol Use: None Hx Recreational Drug Use: No Drugs: None Hx Prescription Drug Abuse: No - Advance Directive Resuscitation Status: Full Code Surrogate healthcare decision maker:: Patient's Family History Family History: CAD, DM, Other - Asbestosis Parental Family History Reviewed: Yes Children Family History Reviewed: Yes Sibling(s) Family History Reviewed.: Yes - Positive for CAD in the family Medication/Allergy Home Medications: Atorvastatin Calcium [Lipitor 40 mg Tablet] 40 mg PO QHS 10/20/16 Esomeprazole Magnesium [Nexium] 20 mg PO DAILY 10/20/16 Hydrochlorothiazide [Hydrodiuril 25 mg Tablet] 25 mg PO DAILY 10/20/16 Metformin HCl [Metformin HCl ER] 500 mg PO DAILY 10/20/16 [place]-3 Fatty Acids/Fish Oil [Fish Oil 1,200 mg Softgel] 2 cap PO DAILY Valsartan [Diovan 160 mg Tablet] 160 mg PO DAILY 10/20/16 Zinc Gluconate [Zinc] 30 mg PO DAILY 10/20/16 Allergies/Adverse Reactions: No Known Allergies Allergy (Verified 10/11/16 19:32) Review of Systems Review of Systems: Please see history of present illness and past medical history as wall. Constitutional: No fever or chills reported. Head : No recent chronic headaches, recent head injury. Eyes: No recent eye pain, diplopia, redness, discharge, acute visual changes. Ears: No recent chronic ear pain, acute hearing loss, ear discharge. Oral cavity: No recent ulcerations, bleeding, oral cavity discomfort. Neck: No recent acute neck pain reported. Hematologic: No recent easy bruising or bleeding or hematologic malignancy reported. Lymphatic: No recent lymphatic malignancy, chronic lymphadenopathy reported yet Cardiovascular system review: See history of present illness. Patient denied any prior history of heart problems, sustained palpitations, syncope or near syncope. Respiratory system review: No recent chronic cough, hemoptysis, blood clots in the lungs reported. Mild Shortness of breath on exertion Gastrointestinal system review: Negative for any recent acute or chronic abdominal pain, hematemesis, melena, recent change in bowel habits. Genitourinary system review: No recent acute or chronic hematuria, flank pain, UTI etc. reported. Skin system review: Negative for any recent abnormal bruising, no rash, no pruritus reported. Neurologic: No prior history of strokes, mini strokes, seizure disorder. Patient describes history of habitual snoring, daytime fatigue and somnolence as well as difficulty staying asleep. Psychologic: No history of major psychosis or major depression reported. Musculoskeletal: Minor aches and pains reported. No acute joint swelling reported. Endocrine: No recent polyuria, polydipsia, recent heat or cold intolerance. Physical Exam Vital Signs: Temp Pulse Resp BP Pulse Ox 98.3 F 83 16 114/71 100 10/20/16 16:56 10/20/16 16:56 10/20/16 16:56 10/20/16 16:56 10/20/16 16:56 Intake & Output 10/19/16 10/20/16 10/21/16 06:59 06:59 06:59 Intake Total 240 Output Total 200 Balance 40 Weight 84.9 kg Exam: GENERAL: well-nourished and in no acute distress. Alert and oriented x3 HEAD: Atraumatic, normocephalic. EYES: Pupils equal round and reactive to light, extraocular movements intact, sclera anicteric, conjunctiva are normal. ENT: TMs normal, nares patent, oropharynx clear without exudates. Moist mucous membranes. No oral ulcerations or bleeding gums noted NECK: supple without lymphadenopathy. Trachea is central. No cervical or axillary lymphadenopathy noted. Carotids are 2+, JVD WNL LUNGS: Respiration seems nonlabored, no significant accessory muscle action noted. Breath sounds clear to auscultation bilaterally and equal noted. No wheezes rales or rhonchi noted. No significant dullness noted on percussion. CHEST: Palpation of the chest wall shows no significant chest wall tenderness. No other significant abnormalities noted. 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 ABDOMEN: Soft, no significant tenderness appreciated, normoactive bowel sounds. No guarding, no rebound. No rigidity noted . No masses appreciated. EXTREMITIES: Pedal pulses are 1-2+, no calf tenderness noted. No clubbing or cyanosis.trace to 1+ pedal edema noted NEUROLOGICAL: Focused neurological exam showed no significant neurologic deficit. Normal speech, no focal weakness appreciated. PSYCH: Normal mood, normal affect. Judgment and insight within normal limits. SKIN: No significant ecchymosis, rash, ulcerations or signs of pruritus noted. MUSCULOSKELETAL EXAM: No significant joint swelling noted. Results Laboratory Results: 10/20/16 11:09 CK-MB (CK-2) 0.74 Troponin I 0.014 EKG Comments: Initial EKG shows atrial flutter with 2 to one conduction. Subsequent EKG shows normal sinus rhythm. No acute ST-T wave changes are noted. Impressions: Chest X-Ray 10/20/16 06:33 IMPRESSION: NO ACUTE RADIOGRAPHIC FINDING IN THE CHEST. Chest/Abdomen CTA 10/20/16 12:06 IMPRESSION: 1. No evidence of acute vascular pathology. No pulmonary embolus. No aortic disease. 2. Allowing for previous granulomatous disease and mild basilar subsegmental atelectasis, the lungs look clear. Assessment & Plan - Diagnosis (1) Atrial flutter with rapid ventricular response Is this a current diagnosis for this admission?: Yes (2) Chest pain Qualifiers: Chest pain type: precordial pain Qualified Code(s): R07.2 - Precordial pain Is this a current diagnosis for this admission?: Yes (3) Diabetes Qualifiers: Diabetes mellitus type: type 2 Diabetes mellitus complication status: without complication Diabetes mellitus prison insulin use: without standpipe tender use Qualified Code(s): E11.9 - Type 2 diabetes mellitus without complications Is this a current diagnosis for this admission?: Yes (4) GERD (gastroesophageal reflux disease) Qualifiers: Esophagitis presence: esophagitis presence not specified Qualified Code(s): K21.9 - Gastro-esophageal reflux disease without esophagitis Is this a current diagnosis for this admission?: Yes (5) Hyperlipidemia Qualifiers: Hyperlipidemia type: unspecified Qualified Code(s): E78.5 - Hyperlipidemia, unspecified Is this a current diagnosis for this admission?: Yes (6) Hypertension Qualifiers: Hypertension type: essential hypertension Qualified Code(s): I10 - Essential (primary) hypertension Is this a current diagnosis for this admission?: Yes (7) Sleep disorder breathing Is this a current diagnosis for this admission?: Yes - Notes Notes: Atrial flutter with rapid ventricular response: Patient converted spontaneously to sinus rhythm. However he does not tolerate atrial flutter. At this point will start patient on Multaq at 400 by mouth twice a day. Hopefully this will prevent recurrences. And even if there is recurrence, his heart rate will be slower. Continue beta leah. Patient [id number] is 2, therefore increased risk of stroke. Has bled score is going to be low. Recommend chronic anticoagulation at least for a month. Will also evaluate patient for possible ablation referral. Chest pain: Possibly brought on by atrial flutter with rapid ventricular response. Patient does have significant cardiac risk factors. There is at least intermediate probability that patient may have underlying CAD. Patient being scheduled for a nuclear stress test. Diabetes: Recommend good control of blood sugar. However should avoid any hypoglycemia. Patient being expertly managed by primary care M.D. Gastroesophageal reflux: This is a significant complaint with this patient. Recommend double dose proton pump therapy. Hyperlipidemia: LDL goal is less than 70. Recommend statin therapy at least intermediate or high dose, of high potency status. Periodic lipid panel and liver panel is indicated. Patient to report any significant muscle discomfort or other side effects. Sleep disorder breathing: Based on patient's symptoms, oropharyngeal exam, body habitus, comorbid diagnosis etc., there is high probability of underlying sleep apnea syndrome. Evaluation is recommended for sleep apnea as treatment of this condition if found is likely to benefit patient and reduce patient's future cardiovascular risk. - Time Time Spent: 30 to 50 Minutes - CODE STATUS was discussed, patient remains full code. Surrogate decision-maker patient's . Multiple medical problems were addressed.More than 50% of the time spent coordinating care, discussing management plans with involved caregivers. Management plans discussed with involved personnels. Medical decision making was of moderate complexity. Medications reviewed and adjusted accordingly: Yes
[2016-10-20] MEDS: LANSOPRAZOLE 30 MG TAB.RAP.DR PO SCH (18:02)
[2016-10-20 18:15] LABS: CREATINE KINASE MB 0.84 ng/mL (<4.55); TROPONIN I 0.019 ng/mL
[2016-10-20] MEDS: METOPROLOL SUCCINATE 25 MG TAB.SR.24H PO SCH (22:22)
[2016-10-20] MEDS: ENOXAPARIN SODIUM INJ 80 MG/0.8 ML DISP.SYRIN SUBCUT SCH (22:22)
[2016-10-20] MEDS: DRONEDARONE HYDROCHLORIDE 400 MG TABLET PO SCH (22:22)
[2016-10-20] MEDS: VALSARTAN 80 MG TABLET PO SCH (22:23)
[2016-10-20] MEDS: FLUTICASONE NASAL SPRAY 50 MCG/SPRY 120 SPRAY/16 GM NASL SCH (22:23)
[2016-10-20 23:54] LABS: CREATINE KINASE MB 0.64 ng/mL (<4.55); TROPONIN I 0.024 ng/mL
[2016-10-21 04:33] LABS: APPEARANCE,URINE CLEAR; BILIRUBIN,URINE NEGATIVE (NEGATIVE); GLUCOSE, URINE NEGATIVE (NEGATIVE); KETONES,URINE NEGATIVE (NEGATIVE); LEUKOCYTE ESTERASE,URINE NEGATIVE (NEGATIVE); NITRITE,URINE NEGATIVE (NEGATIVE); PROTEIN,URINE NEGATIVE (NEGATIVE); URINE SPECIFIC GRAVITY 1.015; UROBILINOGEN,URINE NEGATIVE mg/dL (<2.0)
[2016-10-21] MEDS: LANSOPRAZOLE 30 MG TAB.RAP.DR PO SCH ×2 (06:26→16:12)
[2016-10-21 07:43] LABS: HEMATOCRIT 40.3 % (37.9-51.0); HGB HCT DIFFERENCE 0.5; MEAN CORPUSCULAR HEMOGLOBIN 30.6 pg (27.0-33.4); MEAN CORPUSCULAR HGB CONC 33.8 g/dL (32.0-36.0); MEAN CORPUSCULAR VOLUME 90 fl (80-97); RED BLOOD COUNT 4.46 10^6/uL (4.35-5.55); RED CELL DISTRIBUTION WIDTH 13.2 % (11.5-14.0); WHITE BLOOD COUNT 8.1 10^3/uL (4.0-10.5)
[2016-10-21 07:46] LABS: CHOLESTEROL 140.41 mg/dL (0-200); CREATINE KINASE 63 U/L (55-170); Direct HDL 22 mg/dL (>40); TRIGLYCERIDES 322 mg/dL (<150)
[2016-10-21 07:53] LABS: HEMOGLOBIN 13.6 g/dL (13.5-17.0)
[2016-10-21 07:57] LABS: DIRECT LDL 72 mg/dL (<100)
--- NOTE | 2016-10-21 07:59 | EKG REPORT ---
SEVERITY:- NORMAL ECG - SINUS RHYTHM : Confirmed by: Janet Barba MD 21-Oct-2016 07:58:29
[2016-10-21 08:02] LABS: VLDL CHOLESTEROL 64.4 mg/dL (10-31)
[2016-10-21] MEDS ORDERED: LORATADINE 10 MG TABLET PO SCH (10:00)
[2016-10-21] MEDS ORDERED: NICOTINE 14 MG/24 HR PATCH.TD24 TD SCH (10:00)
[2016-10-21] MEDS ORDERED: ASPIRIN 325 MG TABLET, ENT COATED PO SCH (10:00)
[2016-10-21] MEDS: ENOXAPARIN SODIUM INJ 80 MG/0.8 ML DISP.SYRIN SUBCUT SCH (13:24)
[2016-10-21] MEDS: FLUTICASONE NASAL SPRAY 50 MCG/SPRY 120 SPRAY/16 GM NASL SCH ×2 (13:28→22:05)
[2016-10-21] MEDS: METOPROLOL SUCCINATE 25 MG TAB.SR.24H PO SCH ×2 (13:29→21:56)
[2016-10-21] MEDS: VALSARTAN 80 MG TABLET PO SCH ×2 (13:30→21:56)
[2016-10-21] MEDS: DRONEDARONE HYDROCHLORIDE 400 MG TABLET PO SCH ×2 (13:30→21:56)
--- NOTE | 2016-10-21 16:22 | DRAGON STRESS TEST REPORT ---
INTRAVENOUS LEXISCAN CARDIOLITE STRESS TEST USING SINGLE PHOTON EMMISION COMPUTERIZED TOMOGRAPHIC. DATE OF PROCEDURE: October 21, 2016 INDICATION : Chest pain, atrial flutter CARDIAC RISK FACTORS: Diabetes, hypertension, dyslipidemia, smoking, family history of heart disease RESTING EKG: Sinus rhythm without any baseline ST-T wave changes STRESS EKG: No significant changes noted with LexiScan bolus REASON FOR TERMINATION: Protocol. PROCEDURE REPORT: Baseline heart rate 71 beats per minute with blood pressure of 101/67. Patient had no significant complaints. Heart rate at 2 minutes post bolus 108 with a blood pressure of and 117/69. 3 minutes post bolus heart rate 100 with blood pressure of 113/67. No significant EKG changes were noted. Patient had no significant complaints during the procedure or postprocedure. CONCLUSIONS: Normal EKG and hemodynamic response to IV LexiScan. NUCLEAR DATA: At rest the patient was given 13.08 millicuries of technetium 99 sestamibi injected intravenously. As per protocol rest gated SPECT images were obtained. Subsequently the patient was given intravenous LexiScan at a dose of 0.4 mg in 5 mL intravenously, followed by flush with normal saline. Subsequently the stress dose of 38.2 millicuries of technetium 99 sestamibi was injected intravenously. As per protocol stress gated images were obtained. NUCLEAR INTERPRETATION: Both raw and processed data were used for interpretation. Visual, qualitative, computer-generated quantitative data was used. There was good myocardial uptake of technetium compound. Motion artifact and soft tissue attenuations were noted. Increased visceral uptake was noted. No definitive areas of transient perfusion defect noted. No definitive areas of fixed perfusion defect or scars noted. EKG gated imaging showed LV EF at 46 %, rest and stress gated EF similar visually. T. I D. ratio was 1.25, this is borderline abnormal for pharmacologic stress test. Lung heart ratio noted to be within normal limits 0.25. No significant extracardiac and abnormal radiotracer activities were noted. IMPRESSION: Also refer to comments under nuclear interpretation. Also test results needs to be interpreted in the context of pretest probability. 1. There is no definitive scintigraphic evidence of LexiScan induced myocardial ischemia. 2. There is no definitive scintigraphic evidence of myocardial infarction/scar. 3. EKG gated imaging shows left ejection fraction of approximately 46 %. 4. Borderline transient ischemic dilatation on computer-generated images noted but visually did not seem significant, however this is felt to have little clinical significance in the absence of significant perfusion abnormalities based on recent literature review. Also patient's lung heart ratio was noted to be WNL. Clinical correlation requested as occasionally single vessel disease or balanced ischemia could be missed. In approximately 10% of the cases Lexiscan may not cause adequate vasodilatory stress. RECOMMENDATIONS: Aggressive risk factor modification, medical therapy. Recommend close cardiology follow-up. Clinical correlation with echocardiogram derived ejection fraction. Inability to exercise by itself can lead to increased cardiovascular event risks. Consider cardiology consultation and or follow-up if clinically indicated. I AM AVAILABLE FOR CARDIOLOGY CONSULTATION AND FOLLOWUP IF REQUESTED BY PMD Kristofer Flores M.D., [employer] Juvenile Counselor dental office coordinator, Board certified in cardiovascular diseases, Nuclear cardiology, Echocardiography Cardiac CT and cardiac MRI Ph. [phone] [facility]
[2016-10-21] MEDS ORDERED: APIXABAN 2.5 MG TABLET PO SCH (18:00)
[2016-10-21] MEDS ORDERED: APIXABAN 5 MG TABLET PO SCH (18:00)
--- NOTE | 2016-10-21 19:17 | PDOC TRANSFER SUMMARY ---
General Admission Date/PCP: 10/20/16 10:01 Admission Date: 10/20/16 Transfer Date: 10/21/16 Accepting Facility: [facility] Accepting Physician: Dr. Chamberlain Resuscitation Status: Full Code - Transfer Diagnosis (1) Chest pain Is this a current diagnosis for this admission?: Yes (2) Atrial flutter with rapid ventricular response Is this a current diagnosis for this admission?: Yes (3) Diabetes Is this a current diagnosis for this admission?: Yes (4) Hypertension Is this a current diagnosis for this admission?: Yes (5) Hyperlipidemia Is this a current diagnosis for this admission?: Yes (6) Tobacco abuse Is this a current diagnosis for this admission?: Yes (7) GERD (gastroesophageal reflux disease) Is this a current diagnosis for this admission?: Yes (8) Allergic sinusitis Is this a current diagnosis for this admission?: Yes - Transfer Medications Home Medications: Atorvastatin Calcium [Lipitor 40 mg Tablet] 40 mg PO QHS 10/20/16 Esomeprazole Magnesium [Nexium] 20 mg PO DAILY 10/20/16 Metformin HCl [Metformin HCl ER] 500 mg PO DAILY 10/20/16 Industry-3 Fatty Acids/Fish Oil [Fish Oil 1,200 mg Softgel] 2 cap PO DAILY Valsartan [Diovan 160 mg Tablet] 160 mg PO DAILY 10/20/16 Zinc Gluconate [Zinc] 30 mg PO DAILY 10/20/16 Transfer Medications: Current Medications Al Hydrox/Mg Hydrox/Simethicone (Maalox Plus Susp 30 Udcup) 30 ml PO Q4HP PRN PRN Reason: indigestion Stop: 11/19/16 10:00 Aspirin (Ecotrin 81 Mg Ec Tablet) 81 mg PO DAILY SHYAM Stop: 11/21/16 09:59 Atorvastatin Calcium (Lipitor 80 Mg Tablet) 80 mg PO QHS SHYAM Stop: 11/20/16 21:59 Dextrose (Dextrose Inj 50% Syringe (25 Gm/50 Ml)) 25 gm IV PRN PRN PRN Reason: Protocol Stop: 11/19/16 10:08 Dextrose (Dextrose Inj 50% Syringe (25 Gm/50 Ml)) 12.5 gm IV PRN PRN; Protocol PRN Reason: FOR BG 50-69 IN ALERT PATIENT Stop: 11/19/16 10:08 Diazepam (Valium 5 Mg Tablet) 5 mg PO Q6HP PRN PRN Reason: ANXIETY Stop: 10/27/16 10:00 Dronedarone (Multaq 400 Mg Tablet) 400 mg PO Q12 [facility] Stop: 11/19/16 21:59 Last Admin: 10/21/16 13:30 Dose: 400 mg Enoxaparin Sodium (Lovenox Inj 80 Mg/0.8 Ml Disp.Syrin) 80 mg SUBCUT Q12 SHYAM Stop: 11/20/16 21:59 Fluticasone Propionate (Flonase Nasal [place] 50 Mcg/[place] 16 Gm) 2 spray NASL Q12 SHYAM Stop: 11/19/16 21:59 Last Admin: 10/21/16 13:28 Dose: 2 spray Glucagon (Glucagen Inj 1 Mg Vial) 1 mg IM PRN PRN; Protocol PRN Reason: Evaluate for BG < 70 Stop: 11/19/16 10:08 Glucose (Glutose 40% Gel 15 Gm Tube) 15 gm PO PRN PRN; Protocol PRN Reason: FOR BG 50-69 IN ALERT PATIENT Stop: 11/19/16 10:08 Glucose (Glutose 40% Gel 15 Gm Tube) 30 gm PO PRN PRN; Protocol PRN Reason: FOR BG < 50 IN ALERT PATIENT Stop: 11/19/16 10:08 Influenza Virus Vaccine Quadrival (Fluzone Adlt Quad [id number] Vac 0.5 Ml Syr) 0.5 ml IM .AT DISCHARGE PRN PRN Reason: THIS MED IS NOT "PRN" Stop: 11/19/16 17:26 Insulin Human Lispro (Humalog Insulin 100 Unit/1 Ml 3 Ml Vial) 0 - 12 unit SUBCUT ACHSP PRN PRN Reason: Protocol Stop: 11/19/16 10:08 Lansoprazole (Prevacid 30 Mg Odt Tablet) 30 mg PO BID@0600,1700 [facility] Stop: 11/19/16 16:59 Last Admin: 10/21/16 16:12 Dose: 30 mg Loratadine (Claritin 10 Mg Tablet) 10 mg PO DAILY [facility] Stop: 11/20/16 09:59 Last Admin: 10/21/16 13:29 Dose: 10 mg Metoprolol Succinate (Toprol Xl 25 Mg Tab.Sr) 25 mg PO Q12 SHYAM Stop: 11/19/16 21:59 Last Admin: 10/21/16 13:29 Dose: 25 mg Morphine Sulfate (Morphine 10 Mg/Ml Inj) 4 mg IV Q4HP PRN PRN Reason: pain if not relieved by nitro Stop: 10/27/16 10:06 Nicotine (Nicoderm 14 Mg/24 Hr Transdermal Patch) 1 each TD DAILY SHYAM Stop: 11/20/16 09:59 Last Admin: 10/21/16 13:28 Dose: 1 each Nitroglycerin (Nitrostat 0.4 Mg (1/150 Gr) Tabs 25/Bottle) 1 tab SL Q5MP PRN PRN Reason: chest pain Stop: 10/22/16 10:02 Ondansetron HCl (Zofran Inj/Pf 4 Mg/2 Ml Sdv) 4 mg IV Q6HP PRN PRN Reason: nausea Stop: 11/19/16 10:00 Sodium Chloride (Saline Flush 2.5 Ml Monoject Prefil Syrin) 2.5 ml IV Q8 SHYAM Stop: 11/19/16 13:59 Last Admin: 10/21/16 13:31 Dose: 2.5 ml Valsartan (Diovan 80 Mg Tablet) 80 mg PO Q12 SHYAM Stop: 11/19/16 21:59 Last Admin: 10/21/16 13:30 Dose: 80 mg - Allergies Allergies/Adverse Reactions: No Known Allergies Allergy (Verified 10/11/16 19:32) - Diet/Activity Discharge Diet: Cardiac, Diabetic Hospital Course Hospital Course: JAZMIN AVERY is a 61 year old male with past medical history significant for hypertension, hyperlipidemia, diabetes mellitus type II, tobacco abuse, and family history of heart disease who presents to the emergency department with complaints of chest pain. Patient reports that he was asleep and at 4:30am he was aroused from sleep by chest pain and palpitations. He reports that he had chest pressure that was deep in radiated to his jaw and left arm. Patient also reports associated shortness of breath, nausea without vomiting. Patient denies diaphoresis. He does report a headache. reports some slight confusion. Patient was recently started on Augmentin for what was reported to be a sinus infection. Patient reports he took his blood pressure at this time and is recorded on there home log as 142/97. Patient is found to be in a flutter in the emergency department and subsequently had development of a flutter with rapid ventricular response. Patient received 25 mg grams of IV Cardizem, and digoxin 0.25 mg, and metoprolol 2.5 mg IV 1. 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 Patient had a pause on as for approximately 10 seconds which was symptomatic with lightheadedness. Patient was admitted and ruled out for acute coronary syndrome. Patient underwent stress test pharmacologic which was reported to be negative. Patient had high pretest probability for coronary artery disease and concerns for balanced ischemia. Physical Exam Vital Signs: Temp Pulse Resp BP Pulse Ox 97.8 F 67 16 112/68 99 10/21/16 11:55 10/21/16 14:00 10/21/16 11:55 10/21/16 11:55 10/21/16 11:55 Intake & Output 10/20/16 10/21/16 10/22/16 06:59 06:59 06:59 Intake Total 1558 2418 Output Total 300 Balance 1258 2418 Weight 84.3 kg Exam: General: Awake alert and oriented x3, no acute respiratory distress HEENT: AT/NC, PERRL, EOMI, oropharynx is moist, pink, no scleral icterus, no conjunctival injection Neck: No JVD, trachea midline Chest: Clear to auscultation bilaterally, no wheezes rhonchi or rales CV: Regular rate and rhythm, normal S1 and S2, no murmur, rub, or gallop Abdomen: Soft, nontender to palpation, nondistended, active bowel sounds; no rebound, rigidity, or guarding Extremities: No cyanosis, clubbing or edema Neuro: Cranial nerves II through XII are grossly intact without focal deficits; awake alert and orientedx3 Psych: Normal mood and affect Results Laboratory Results: 10/21/16 07:09 10/21/16 10/21/16 10/21/16 04:00 04:00 07:09 WBC 8.1 RBC 4.46 Hgb 13.6 D Hct 40.3 MCV 90 MCH 30.6 MCHC 33.8 RDW 13.2 Plt Count 154 Triglycerides Cholesterol LDL Cholesterol Direct VLDL Cholesterol HDL Cholesterol Urine Color YELLOW Urine Appearance CLEAR Urine pH 5.0 Ur Specific [place] 1.015 Urine Protein NEGATIVE Urine Glucose (UA) NEGATIVE Urine Ketones NEGATIVE Urine Blood NEGATIVE Urine Nitrite NEGATIVE Ur Leukocyte Esterase NEGATIVE Urine WBC (Auto) 1 Urine RBC (Auto) 1 Stool Occult Blood NEGATIVE 10/21/16 07:09 WBC RBC Hgb Hct MCV MCH MCHC RDW Plt Count Triglycerides 322 H Cholesterol 140.41 LDL Cholesterol Direct 72 VLDL Cholesterol 64.4 H HDL Cholesterol 22 L Urine Color Urine Appearance Urine pH Ur Specific [place] Urine Protein Urine Glucose (UA) Urine Ketones Urine Blood Urine Nitrite Ur Leukocyte Esterase Urine WBC (Auto) Urine RBC (Auto) Stool Occult Blood 10/20/16 10/20/16 10/20/16 11:09 17:20 23:16 Creatine Kinase CK-MB (CK-2) 0.74 0.84 0.64 Troponin I 0.014 0.019 0.024 10/21/16 07:09 Creatine Kinase 63 CK-MB (CK-2) Troponin I Impressions: Chest X-Ray 10/20/16 06:33 IMPRESSION: NO ACUTE RADIOGRAPHIC FINDING IN THE CHEST. Chest/Abdomen CTA 10/20/16 12:06 IMPRESSION: 1. No evidence of acute vascular pathology. No pulmonary embolus. No aortic disease. 2. Allowing for previous granulomatous disease and mild basilar subsegmental atelectasis, the lungs look clear. Plan Time Spent: Greater than 30 Minutes
--- NOTE | 2016-10-21 20:26 | PDOC PROGRESS REPORT ---
Subjective Progress Note for:: 10/21/16 Subjective:: Patient seems to be doing better. No recurrence of atrial flutter. Pt is denying any chest arm or neck discomfort. Patient denying any PND, orthopnea. Patient denied any sustained palpitations, dizziness, syncope, near syncope. Patient denying any fever chills. Patient denying any other significant discomfort. Patient is maintaining sinus rhythm. Review of systems: Rest review of systems negative. Medications: Medications have been reviewed. Nuclear stress test procedure was explained to the patient in detail. Risks benefits were discussed and informed consent was obtained. Alternatives were discussed. Patient informed that based on risk factors, physical exam, lab data findings and symptoms there is at least intermediate probability of underlying CAD. Nuclear stress test procedure was therefore scheduled. Physical Exam Vital Signs: Temp Pulse Resp BP Pulse Ox 97.8 F 67 16 112/68 99 10/21/16 11:55 10/21/16 14:00 10/21/16 11:55 10/21/16 11:55 10/21/16 11:55 Intake & Output 10/20/16 10/21/16 10/22/16 06:59 06:59 06:59 Intake Total 1558 2418 Output Total 300 Balance 1258 2418 Weight 84.3 kg Exam: GENERAL: well-nourished and in no acute distress. Alert and oriented x3 HEAD: Atraumatic, normocephalic. EYES: Pupils equal round and reactive to light, extraocular movements intact, sclera anicteric, conjunctiva are normal. ENT: TMs normal, nares patent, oropharynx clear without exudates. Moist mucous membranes. No oral ulcerations or bleeding gums noted NECK: supple without lymphadenopathy. Trachea is central. No cervical or axillary lymphadenopathy noted. Carotids are 2+, JVD WNL LUNGS: Respiration seems nonlabored, no significant accessory muscle action noted. Breath sounds clear to auscultation bilaterally and equal noted. No wheezes rales or rhonchi noted. No significant dullness noted on percussion. CHEST: Palpation of the chest wall shows no significant chest wall tenderness. No other significant abnormalities noted. 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 ABDOMEN: Soft, no significant tenderness appreciated, normoactive bowel sounds. No guarding, no rebound. No rigidity noted . No masses appreciated. EXTREMITIES: Pedal pulses are 1-2+, no calf tenderness noted. No clubbing or cyanosis.trace to 1+ pedal edema noted NEUROLOGICAL: Focused neurological exam showed no significant neurologic deficit. Normal speech, no focal weakness appreciated. PSYCH: Normal mood, normal affect. Judgment and insight within normal limits. SKIN: No significant ecchymosis, rash, ulcerations or signs of pruritus noted. MUSCULOSKELETAL EXAM: No significant joint swelling noted. Results Laboratory Results: 10/21/16 07:09 10/21/16 10/21/16 10/21/16 04:00 04:00 07:09 WBC 8.1 RBC 4.46 Hgb 13.6 D Hct 40.3 MCV 90 MCH 30.6 MCHC 33.8 RDW 13.2 Plt Count 154 Triglycerides Cholesterol LDL Cholesterol Direct VLDL Cholesterol HDL Cholesterol Urine Color YELLOW Urine Appearance CLEAR Urine pH 5.0 Ur Specific [place] 1.015 Urine Protein NEGATIVE Urine Glucose (UA) NEGATIVE Urine Ketones NEGATIVE Urine Blood NEGATIVE Urine Nitrite NEGATIVE Ur Leukocyte Esterase NEGATIVE Urine WBC (Auto) 1 Urine RBC (Auto) 1 Stool Occult Blood NEGATIVE 10/21/16 07:09 WBC RBC Hgb Hct MCV MCH MCHC RDW Plt Count Triglycerides 322 H Cholesterol 140.41 LDL Cholesterol Direct 72 VLDL Cholesterol 64.4 H HDL Cholesterol 22 L Urine Color Urine Appearance Urine pH Ur Specific [place] Urine Protein Urine Glucose (UA) Urine Ketones Urine Blood Urine Nitrite Ur Leukocyte Esterase Urine WBC (Auto) Urine RBC (Auto) Stool Occult Blood 10/20/16 10/20/16 10/20/16 11:09 17:20 23:16 Creatine Kinase CK-MB (CK-2) 0.74 0.84 0.64 Troponin I 0.014 0.019 0.024 10/21/16 07:09 Creatine Kinase 63 CK-MB (CK-2) Troponin I EKG Comments: 2-D echo results were discussed. Nuclear stress test results were discussed. Impressions: Chest X-Ray 10/20/16 06:33 IMPRESSION: NO ACUTE RADIOGRAPHIC FINDING IN THE CHEST. Chest/Abdomen CTA 10/20/16 12:06 IMPRESSION: 1. No evidence of acute vascular pathology. No pulmonary embolus. No aortic disease. 2. Allowing for previous granulomatous disease and mild basilar subsegmental atelectasis, the lungs look clear. Assessment & Plan - Diagnosis (1) Atrial flutter with rapid ventricular response Is this a current diagnosis for this admission?: Yes (2) Chest pain Qualifiers: Chest pain type: precordial pain Qualified Code(s): R07.2 - Precordial pain Is this a current diagnosis for this admission?: Yes (3) Diabetes Qualifiers: Diabetes mellitus type: type 2 Diabetes mellitus complication status: without complication Diabetes mellitus assisted insulin use: without assisted use Qualified Code(s): E11.9 - Type 2 diabetes mellitus without complications Is this a current diagnosis for this admission?: Yes (4) GERD (gastroesophageal reflux disease) Qualifiers: Esophagitis presence: esophagitis presence not specified Qualified Code(s): K21.9 - Gastro-esophageal reflux disease without esophagitis Is this a current diagnosis for this admission?: Yes (5) Hyperlipidemia Qualifiers: Hyperlipidemia type: unspecified Qualified Code(s): E78.5 - Hyperlipidemia, unspecified Is this a current diagnosis for this admission?: Yes (6) Hypertension Qualifiers: Hypertension type: essential hypertension Qualified Code(s): I10 - Essential (primary) hypertension Is this a current diagnosis for this admission?: Yes (7) Sleep disorder breathing Is this a current diagnosis for this admission?: Yes - Notes Notes: Atrial flutter with rapid ventricular response: Patient converted spontaneously to sinus rhythm yesterday. However he does not tolerate atrial flutter. Patient was started on Multaq at 400 by mouth twice a day. He seems to be tolerating this. Hopefully this will prevent recurrences. And even if there is recurrence, his heart rate will be slower. Continue beta leah. Patient [id number] is 2, therefore increased risk of stroke. Has bled score is going to be low. Recommend chronic anticoagulation at least for a month. Will also evaluate patient for possible ablation referral. Chest pain: Possibly brought on by atrial flutter with rapid ventricular response. Patient does have significant cardiac risk factors. There is at least intermediate probability that patient may have underlying CAD. Patient today had a nuclear stress test which was negative for ischemia but borderline transient ischemic dilatation was noted. Please refer to nuclear report for details. Diabetes: Recommend good control of blood sugar. However should avoid any hypoglycemia. Patient being expertly managed by primary care Oliver Gastroesophageal reflux: This is a significant complaint with this patient. Recommend double dose proton pump therapy. Hyperlipidemia: LDL goal is less than 70. Recommend statin therapy at least intermediate or high dose, of high potency status. Periodic lipid panel and liver panel is indicated. Patient to report any significant muscle discomfort or other side effects. Sleep disorder breathing: Based on patient's symptoms, oropharyngeal exam, body habitus, comorbid diagnosis etc., there is high probability of underlying sleep apnea syndrome. Evaluation is recommended for sleep apnea as treatment of this condition if found is likely to benefit patient and reduce patient's future cardiovascular risk. - Time Time with patient: Greater than 35 minutes - Patient was seen multiple times. Total time exceeds 40 minutes. In the morning nuclear stress test procedure, risks benefits, alternatives were discussed. Patient seen during the stress test. Patient also seen after stress test when results were discussed with the patient in detail. Patient's questions were answered. Nuclear stress test results were discussed with the patient. Patient was informed that no definitive evidence of pharmacologic stress-induced ischemia noted. No definite fixed defects were noted. Patient informed that occasionally significant single vessel disease or balanced ischemia could be missed. However based on the current study results, would recommend aggressive risk factor modification and medical therapy. It may also be worthwhile to consider evaluation or empiric management of other causes of chest pain. Should no other cause be found and if persistent in having chest pain, then cardiac catheterization should be considered. Right now, recommendations are for aggressive risk factor modification and medical management.CODE STATUS was discussed, patient remains full code. Surrogate decision-maker unchanged. Multiple medical problems were addressed.More than 50% of the time spent coordinating care, discussing management plans with involved caregivers. Management plans discussed with involved personnels. Medical decision making was of moderate complexity.
[2016-10-21 20:36] VITALS: BP 125/77
[2016-10-21] MEDS ORDERED: ENOXAPARIN SODIUM INJ 80 MG/0.8 ML DISP.SYRIN SUBCUT SCH (22:00)
[2016-10-21] MEDS ORDERED: ATORVASTATIN CALCIUM 40 MG TABLET PO SCH (22:00)
[2016-10-21] MEDS ORDERED: ATORVASTATIN CALCIUM 80 MG TABLET PO SCH (22:00)
[2016-10-22] MEDS ORDERED: ASPIRIN 81 MG TABLET, ENT COATED PO SCH (10:00)
== END 2016-10-21 23:06 | disposition short-term general hospital (02) ==
LOC: ER 06:31 → UNDOADMOB 09:40 → EH 09:40 → INTOOBSV 09:40 → EH 10:01 → 3W 16:50
PROVIDERS: ADMIT Family Medicine; ATTEND Family Medicine
DX: R07.9 Chest pain, unspecified (principal); I48.92 Unspecified atrial flutter; E11.9 Type 2 diabetes mellitus without complications; I10 Essential (primary) hypertension; E78.5 Hyperlipidemia, unspecified; K21.9 Gastro-esophageal reflux disease without esophagitis; J30.9 Allergic rhinitis, unspecified; Z79.4 Long term (current) use of insulin; F17.210 Nicotine dependence, cigarettes, uncomplicated; G47.30 Sleep apnea, unspecified
CPT/HCPCS: 93005 ×2; 99291; 96375; 96365; 36415 ×2; 82553; 82962 ×2; 80307 ×2; 82550 ×2; 83735; 84443; 85025; 85027; 82272; 80053; 81001 ×2; 84484; 83036; 85379; 80061; 93306; 93017; 71010; 78452; 71275; 93010; G0378 ×3; A9500; J2785; J3490 ×7; J1815; J3475; J7030; J1650 ×2; J0280; Q9969

== ENCOUNTER 2017-01-15 21:12 | Emergency (ER) | payer OTHER ==
[2017-01-15] MEDS ORDERED: ASPIRIN 81 MG TABLET, CHEWABLE PO ONE (21:24)
[2017-01-15] MEDS ORDERED: ADENOSINE INJ/PF 6 MG/2 ML SDV IV ONE ×2 (21:35→21:43)
[2017-01-15] MEDS ORDERED: DILTIAZEM HCL INJ 25 MG/5 ML VIAL ONE (21:40)
[2017-01-15] MEDS ORDERED: DILTIAZEM HCL/D5W 125 ML IV PRN (21:43)
[2017-01-15] MEDS ORDERED: DILTIAZEM HCL INJ 25 MG/5 ML VIAL IV ONE ×2 (21:43→22:01)
[2017-01-15 21:54] LABS: PROTHROMBIN TIME 12.7 SEC (11.4-15.4)
[2017-01-15 21:59] LABS: ABSOLUTE EOSINOPHILS # (AUTO) 0.4 10^3/uL (0.0-0.6); ABSOLUTE LYMPHOCYTES (AUTO) 3.3 10^3/uL (0.5-4.7); ABSOLUTE MONOCYTES (AUTO) 0.9 10^3/uL (0.1-1.4); ABSOLUTE NEUT (AUTO) 6.4 10^3/uL (1.7-8.2); BASOPHILS % (AUTO) 0.4 % (0-2); EOSINOPHILS % (AUTO) 3.3 % (0-6); HEMATOCRIT 50.4 % (37.9-51.0); HEMOGLOBIN 17.2 g/dL (13.5-17.0); HGB HCT DIFFERENCE 1.2; LYMPHOCYTES % (AUTO) 29.7 % (13-45); MEAN CORPUSCULAR HEMOGLOBIN 31.3 pg (27.0-33.4); MEAN CORPUSCULAR HGB CONC 34.2 g/dL (32.0-36.0); MEAN CORPUSCULAR VOLUME 92 fl (80-97); MONOCYTES % (AUTO) 8.2 % (3-13); RED CELL DISTRIBUTION WIDTH 13.6 % (11.5-14.0); SEGMENTED NEUTROPHILS % (AUTO) 58.4 % (42-78)
[2017-01-15 22:00] LABS: ALANINE AMINOTRANSFERASE 40 U/L (21-72); ALBUMIN 4.9 g/dL (3.5-5.0); ALKALINE PHOSPHATASE 117 U/L (38-126); ANION GAP 15 (5-19); ASPARTATE AMINO TRANSFERASE 31 U/L (17-59); BILIRUBIN,DIRECT 0.4 mg/dL (0.0-0.4); BLOOD UREA NITROGEN 21 mg/dL (7-20); CALCIUM 10.4 mg/dL (8.4-10.2); CARBON DIOXIDE 26 mmol/L (22-30); CHLORIDE 101 mmol/L (98-107); CREATINE KINASE 139 U/L (55-170); CREATININE RESULT 0.93 mg/dL (0.52-1.25); GLUCOSE 158 mg/dL (75-110); POTASSIUM 4.1 mmol/L (3.6-5.0); SODIUM 141.9 mmol/L (137-145); TOTAL PROTEIN 8.5 g/dL (6.3-8.2)
[2017-01-15] MEDS ORDERED: NORMAL SALINE 500 ML IV ONE (22:01)
[2017-01-15 22:12] LABS: CREATINE KINASE MB 1.19 ng/mL (<4.55); TROPONIN I < 0.012 ng/mL
--- NOTE | 2017-01-15 22:22 | RADIOLOGY REPORT (SQ) ---
EXAM DESCRIPTION: CHEST SINGLE VIEW COMPLETED DATE/TIME: 01/15/2017 9:53 pm REASON FOR STUDY: cp COMPARISON: 10/20/2016 EXAM PARAMETERS: NUMBER OF VIEWS: One view. TECHNIQUE: Single frontal radiographic view of the chest acquired. RADIATION DOSE: NA LIMITATIONS: None. FINDINGS: LUNGS AND PLEURA: No acute opacities, masses or pneumothorax. No pleural effusion. MEDIASTINUM AND HILAR STRUCTURES: No masses. Contour normal. HEART AND VASCULAR STRUCTURES: Heart normal in size. Normal vasculature. BONES: No acute findings. HARDWARE: None in the chest. OTHER: No other significant finding. IMPRESSION: NO ACUTE RADIOGRAPHIC FINDING IN THE CHEST. TECHNICAL DOCUMENTATION: JOB ID: [id number]
--- NOTE | 2017-01-15 22:53 | ER Document Report ---
ED Cardiac - General Mode of Arrival: Wheelchair Information source: Patient, Relative - Spouse TRAVEL OUTSIDE OF THE [place] IN LAST 30 DAYS: No - HPI Patient complains to provider of: Chest pain, Shortness of breath Chest pain radiation location: Left jaw, Right jaw Similar symptoms previously: Yes Recently seen / treated by doctor: No <DIANE BELLAMY - Last Filed: 01/15/17 23:57> <GAVI RAMEY - Last Filed: 01/16/17 00:57> - General Chief Complaint: Chest Pain Stated Complaint: CHEST PAIN Time Seen by Provider: 01/15/17 21:25 Notes: Patient is a 61-year-old male presenting to the emergency department for chest pain, tachycardia, shortness of breath, and jaw pain. Patient's symptoms were onset about an hour and a half prior to arrival. Patient states he waited about 1 hour after the chest pain started and then he took some Cardizem and other cardiac medications that were given to him from his carrier blower. Patient has a history of type II diabetes mellitus, hypercholesterolemia, hypertension and A-fib. Patient has a history of a similar episode with chest pain and shortness of breath however, he did not have any jaw pain during that last episode. Patient's carrier blower is Dr. Barksdale. (DIANE BELLAMY) - Related Data Allergies/Adverse Reactions: No Known Allergies Allergy (Verified 10/11/16 19:32) Past Medical History - General Information source: Patient, Relative - SPOUSE - Social History Smoking Status: Current Every Day Smoker Cigarette use (# per day): Yes Chew tobacco use (# tins/day): No Frequency of alcohol use: None Drug Abuse: None Family History: CAD, DM, Other - Asbestosis Patient has suicidal ideation: No Patient has homicidal ideation: No - Past Medical History Cardiac Medical History: Reports: Hx Atrial Fibrillation, Hx Hypercholesterolemia, Hx Hypertension Endocrine Medical History: Reports: Hx Diabetes Mellitus Type 2 Past Surgical History: Reports: Hx Orthopedic Surgery - Shoulder, knee, elbow - Immunizations Hx Diphtheria, Pertussis, Tetanus Vaccination: - unk <DIANE BELLAMY - Last Filed: 01/15/17 23:57> Review of Systems - Review of Systems Constitutional: No symptoms reported EENT: No symptoms reported Cardiovascular: See HPI, Other - jaw pain Respiratory: No symptoms reported Gastrointestinal: No symptoms reported Genitourinary: No symptoms reported Male Genitourinary: No symptoms reported Musculoskeletal: No symptoms reported Skin: No symptoms reported Hematologic/Lymphatic: No symptoms reported Neurological/Psychological: See HPI, Headaches -: Yes All other systems reviewed and negative <DIANE BELLAMY - Last Filed: 01/15/17 23:57> Physical Exam <JOSESITODIANE - Last Filed: 01/15/17 23:57> <GAVI RAEMY - Last Filed: 01/16/17 00:57> - Vital signs Vitals: Pulse Resp BP Pulse Ox 74 18 100/68 99 01/15/17 23:10 01/15/17 23:10 01/15/17 23:10 01/15/17 23:10 - Notes Notes: GENERAL: Alert, interacts well. appears anxious, rubbing his jaw. HEAD: Normocephalic, atraumatic. EYES: Pupils equal, round, and reactive to light. Extraocular movements intact. ENT: Oral mucosa moist, tongue midline. NECK: Full range of motion. Supple. Trachea midline. LUNGS: Clear to auscultation bilaterally, no wheezes, rales, or rhonchi. No respiratory distress. HEART: Tachycardia, Regular rhythm. No murmurs, gallops, or rubs. ABDOMEN: Soft, non-tender. Non-distended. Bowel sounds present in all 4 quadrants. EXTREMITIES: Moves all 4 extremities spontaneously. No edema, radial and dorsalis pedis pulses are bounding bilaterally. No cyanosis. NEUROLOGICAL: Alert and oriented x3. Normal speech. PSYCH: Normal affect, mildly anxious. SKIN: Warm, dry and not diaphoretic, normal turgor. No rashes or lesions noted. (KARLAFRANKIEDIANE) Course - Laboratory Result Diagrams: 01/15/17 21:30 01/15/17 21:30 - Consults Dr. Barksdale, Cardiology Time consulted: 23:11 <DIANE BELLAMY - Last Filed: 01/15/17 23:57> - Laboratory Result Diagrams: 01/15/17 21:30 01/15/17 21:30 <GAVI RAMEY - Last Filed: 01/16/17 00:57> - Re-evaluation Re-evalutation: 01/16/17 00:14 Patient was quite tachycardic on arrival, underlying mechanism was unclear, patient was placed on a monitor and given adenosine which revealed atrial flutter as the underlying mechanism, patient was then given a bolus of Cardizem 30 mg when this did not cause any improvement in his rate he was given a second bolus of 20 mg patient then spontaneously converted into sinus rhythm and has been at a rate between 60 and 70 bpm for approximately the past 2 hours. Cardiac enzymes came back negative, he has a slight demargination with a leukocytosis of 11.0, x-ray has no acute process on the chest x-ray. Pain into his jaw has now resolved. EKG is nonischemic. I discussed this patient with Dr. barksdale who agrees that so long as the patient stays in sinus rhythm off of the Cardizem he can be discharged home, she will see him in clinic on Wednesday at 2 PM. (GAVI RAMEY) - Vital Signs Vital signs: Temp Pulse Resp BP Pulse Ox 60 18 91/60 L 96 01/16/17 00:51 01/16/17 00:51 01/16/17 00:51 01/16/17 00:51 - Laboratory Laboratory results interpreted by me: 01/15/17 01/15/17 21:30 21:30 WBC 11.0 H Hgb 17.2 H BUN 21 H Glucose 158 H Calcium 10.4 H Total Protein 8.5 H - EKG Interpretation by Me Additional EKG results interpreted by me: 01/16/17 00:14 EKG shows supraventricular tachycardia, atrial flutter at a rate of 144, slight left axis deviation, T-wave inversions with ST segment depressions noted in 2, 3 , aVF and ST segment depressions also noted in V3 through V6 likely rate related , no ST segment elevations are noted per my interpretation. 01/16/17 00:14 Repeat EKG shows sinus rhythm at a rate of 74, left axis deviation, normal intervals, no ST segment elevations or depressions, no T-wave inversions per my interpretation. 01/16/17 00:15 (GAVI RAMEY) - Consults Dr. Barksdale, Cardiology Reason for consultation: 01/15/17 23:[address] Barksdale to consult about patient. 01/15/17 23:[address] Barksdale who states the patient can be discharged and he will follow up in Dr. Barksdale's office on Wednesday at 2:00 pm. (DIANE BELLAMY) Discharge <DIANE BELLAMY - Last Filed: 01/15/17 23:57> <GAVI RAMEY - Last Filed: 01/16/17 00:57> - Discharge Clinical Impression: Atrial flutter with rapid ventricular response Condition: Stable Disposition: HOME, SELF-CARE Additional Instructions: Follow-up with Dr. Barksdale at 2 PM Wednesday afternoon. Please return to the emergency department should your rapid heart rate return and not get better with your diltiazem. Referrals: CARRIE BARKSDALE MD [NO LOCAL MD] - Follow up as needed Scribe Attestation: 01/16/17 00:57 I personally performed the services described in the documentation, reviewed and edited the documentation which was dictated to the scribe in my presence, and it accurately records my words and actions. (GAVI RAMEY) Scribe Documentation - Scribe Written by Scribe:: Alexis Sanchez, 01/15/2017 23:16 acting as scribe for :: Oral <DIANE BELLAMY - Last Filed: 01/15/17 23:57>
[2017-01-16 00:53] VITALS: BP 91/60
--- NOTE | 2017-01-18 09:54 | EKG REPORT ---
SEVERITY:- ABNORMAL ECG - A FLUTTER WITH 2:1 CONDUCTION BORDERLINE LEFT AXIS DEVIATION REPOL ABNRM SUGGESTS ISCHEMIA, DIFFUSE LEADS : Confirmed by: Kristofer Flores 18-Jan-2017 09:53:11
--- NOTE | 2017-01-18 09:54 | EKG REPORT ---
SEVERITY:- OTHERWISE NORMAL ECG - SINUS RHYTHM BORDERLINE LEFT AXIS DEVIATION : Confirmed by: Kristofer Flores 18-Jan-2017 09:52:31
== END 2017-01-16 00:51 | disposition home or self-care (01) ==
LOC: ER 21:12
DX: I48.92 Unspecified atrial flutter (principal); R07.9 Chest pain, unspecified; R00.0 Tachycardia, unspecified; R06.02 Shortness of breath; R68.84 Jaw pain; F17.210 Nicotine dependence, cigarettes, uncomplicated
CPT/HCPCS: 93005; 96376; 99285; 96375; 96365; 36415; 82553; 82550; 85025; 85610; 80053; 84484; 71010; 93010; J3490 ×2; J7040; J0153